=== PATIENT | male | born 1950 ===

== ENCOUNTER 2017-01-25 06:18 | Day surgery (SDC) | payer MEDICARE ==
[2017-01-16 11:34] VITALS: BMI 31.4
[2017-01-25 07:06] VITALS: RESP 16
[2017-01-25] MEDS ORDERED: Benzocaine/Butamben/Tetracai 14-2-2% TOP Spray TOP ONE (08:07)
[2017-01-25] MEDS ORDERED: Propofol 10 mg/ml Inj (20 ML) ONE (08:08)
[2017-01-25] MEDS ORDERED: Sodium Chloride 0.9% 1,000 ML IV SCH (09:45)
[2017-01-25 10:05] VITALS: BP 126/73; PULSE 63; TEMP 97.7; O2SAT 93
== END 2017-01-25 10:15 | disposition home or self-care (01) ==
LOC: ENDO 06:18
PROVIDERS: ATTEND Specialist
DX: Z12.11 Encounter for screening for malignant neoplasm of colon (principal); D12.3 Benign neoplasm of transverse colon; K21.9 Gastro-esophageal reflux disease without esophagitis; K57.30 Diverticulosis of large intestine without perforation or abscess without bleeding; K64.8 Other hemorrhoids; J44.9 Chronic obstructive pulmonary disease, unspecified; I25.10 Atherosclerotic heart disease of native coronary artery without angina pectoris; Z95.1 Presence of aortocoronary bypass graft; Z95.810 Presence of automatic (implantable) cardiac defibrillator
CPT/HCPCS: 43239; 45385; 88305; 88312; 88342; J2001; J2704; J3010; J7040 ×2